=== PATIENT | male | born 1970 | race Caucasian/White ===

== ENCOUNTER 2017-01-14 22:07 | Emergency (ER) | payer OTHER ==
[~2017-01-14] VITALS: Ht 170.2 cm; Wt 104.3 kg
[2017-01-14 22:23] LABS: ABSOLUTE NEUTROPHILS 3.7 thou/uL (1.4-8.2); BASOPHILS 1.1 % (0.0-2.0); EOSINOPHILS 1.2 % (0.0-3.0); HEMATOCRIT 47.9 % (42.0-52.0); HEMOGLOBIN 16.8 gm/dL (14.0-18.0); LYMPHOCYTES 49.7 % (24.0-44.0); MCH 33.7 pg (26.0-34.0); MCHC 35.1 g/dL (28.0-37.0); MCV 96.1 fL (80.0-100.0); MONOCYTES 7.6 % (1.0-8.0); PLATELET COUNT 207 thou/uL (150-400); POLYS 40.4 % (36.0-66.0); RBC 4.98 mil/uL (4.50-6.00); RDW 13.2 % (10.5-14.5); WBC 9.2 thou/uL (4.0-11.0)
[2017-01-14 22:26] LABS: MANUAL DIFF NO
[2017-01-14 22:37] LABS: CALCIUM 9.1 mg/dL (8.5-10.1); CREATININE 0.9 mg/dL (0.6-1.3); POTASSIUM 3.8 mmol/L (3.5-5.1)
[2017-01-14 22:42] LABS: URINE BILIRUBIN NEGATIVE (Negative); URINE BLOOD TRACE (Negative); URINE COLOR YELLOW; URINE GLUCOSE-RANDOM* NEGATIVE (Negative); URINE KETONES NEGATIVE (Negative); URINE LEUKOCYTES-REFLEX NEGATIVE (Negative); URINE PROTEIN (DIPSTICK) NEGATIVE (Negative); URINE SPECIFIC GRAVITY <= 1.005 (1.003-1.035); URINE UROBILINOGEN 0.2 E.U./dl (0.2-1.0)
[2017-01-14] MEDS ORDERED: HYDROCODONE-APA1 TA1 PO (23:27)
[2017-01-14] MEDS ORDERED: FLOMAX0.4 MG PO (23:27)
[2017-01-14 23:37] VITALS: BP 141/90
== END 2017-01-14 23:38 | disposition home or self-care (01) ==
LOC: ER 22:07
PROVIDERS: Emergency Medicine
DX: M54.5 Low back pain (principal); N21.0 Calculus in bladder; N20.0 Calculus of kidney; Z87.442 Personal history of urinary calculi; F17.210 Nicotine dependence, cigarettes, uncomplicated; F10.99 Alcohol use, unspecified with unspecified alcohol-induced disorder